=== PATIENT | male | born 1975 | race Caucasian/White ===

== ENCOUNTER 2016-12-19 23:22 | Emergency (ER) | payer MEDICAID ==
[2017-02-22 12:02] VITALS: BMI 16.3
== END 2016-12-20 00:43 | disposition home or self-care (01) ==
LOC: D.ER 23:22
DX: J01.90 Acute sinusitis, unspecified (principal); J44.1 Chronic obstructive pulmonary disease with (acute) exacerbation; F17.200 Nicotine dependence, unspecified, uncomplicated

== ENCOUNTER → 2017-01-24 15:11 | Outpatient (CLI) | payer MEDICAID ==
[~2017-01-24 15:11] MED LIST: COMBIVENT RESPIM4 GM INH; PROVENTIL HFA6.7 GM INH
[2017-02-22 12:02] VITALS: BMI 16.3
== END | disposition home or self-care (01) ==
LOC: D.CT 01-17 14:30
DX: R91.8 Other nonspecific abnormal finding of lung field (principal)

== ENCOUNTER 2017-02-22 11:35 | Outpatient (CLI) | payer MEDICAID ==
[~2017-02-22] VITALS: Ht 193 cm; Wt 60.9 kg
--- NOTE | ~2017-02-22 | HEMODYNAMI ---
PATIENT:FRANCE BOX MEDICAL RECORD: [id number] : 79 LOCATION:[facility] ADMISSION DATE: 02/22/17 Generatedon:02/22/201713:24 Patient name: FRANCE BOX Patient #: [id number] SSN: : [id number] Date of study: 02/22/2017 Page: Of Hemodynamic Procedure Report Patient Data Patient Demographics Procedure consent was obtained First Name: FRANCE Gender: Male Last Name: ISAURO : 1975 Middle Initial: DELL Age: 41 year(s) Patient #: [id number] Race: Additional ID: [id number] Contact details Address: [address] [place] [address] State: [place] City: [place] Zip code: [address] Past Medical History Allergies Allergen Reaction Date Comments Reported Other allergy 02/22/2017 Demadex, PCN, ASA, Benadryl, Robitussin DM Admission Admission Data Admission Date: 02/22/2017 Admission Time: 11:35 Admit Source: Other Height (in.): 76 BSA: 1.87 (m2) Height (cm.): 193.04 BMI: 16.31 (kg/m2) Weight (lbs.): 134 Weight (kg.): 60.78 Lab Results Lab Result Date: 02/22/2017 Lab Result Time: 0:00 Biochemistry Name Units Result Min Max Creatinine mg/dl 0.8 --(-*--)-- 0.6 1.3 CBC Name Units Result Min Max Hemoglobin g/dl 15.3 --(-*--)-- 13.5 17.5 Procedure Procedure Types Cath Procedure Diagnostic Procedure [facility] w/Coronaries Miscellaneous Procedures Moderate Sedation up to 30 minutes Procedure Description Procedure Date Procedure Date: 02/22/2017 Procedure Start Time: 13:12 Procedure End Time: 13:24 Procedure Staff Name Function Moisés Moss MD Performing Physician Omar Kaur RT Scrub Adolfo Thomas RN Nurse Rachell Agosto RT Monitor Procedure Data Cath Procedure Fluoroscopy Diagnostic fluoroscopy Total fluoroscopy Time: 1.1 time: 1.1 min min Diagnostic fluoroscopy Total fluoroscopy dose: 149 dose: 149 mGy mGy Contrast Material Contrast Material Type Amount (ml) Isovue 300 67 Entry Location Entry Primary Successful Side Size Upsize Upsize Entry Closure Succes sful Closure Location (Fr) 1 (Fr) 2 (Fr) Remarks Device Remarks Femoral Right 5 Fr Exoseal artery Estimated blood loss: 5 ml Diagnostic catheters Device Type Used For End Catheter Placement Cordis 5Fr JL 4.0 Left Coronary Catheter (MP) Angiography Cordis 5Fr 3DRC Catheter Right Coronary (MP) Angiography Cordis 5Fr Pigtail LV Angiography Catheter (MP) Procedure Complications No complications Procedure Medications Medication Administration Route Dosage Oxygen NC 2 l/min Heparin Flush Bag added to field 2 bags (1000units/500ml NS) 0.9% NaCl I.V. 100 ml/hr Fentanyl I.V. 50 mcg Versed I.V. 1 mg Fentanyl I.V. 50 mcg Versed I.V. 1 mg Fentanyl I.V. 50 mcg Versed I.V. 1 mg Fentanyl I.V. 50 mcg Versed I.V. 1 mg Hemodynamics Rest BSA: 1.87 (m2) HGB: 15.3 (g/dl) O2 Consumption: Estimated: 229.37 (ml/min) O2 Co nsumption indexed: Estimated:122.66 (ml/min/m) Heart Rate: 71 (bpm) Pressure Samples Time Site Value (mmHg) Purpose Heart Use Rate(bpm) 13:18 LV 91/0,19 EDP 69 Gradients Valve Time Site Site Mean SEP/DFP Peak To Heart Use 1 2 (mmHg) (sec/min) Peak Rate (mmHg) (bpm) Aortic 13:19 LV AO 72 Snapshots Pre Cath Intra NCS Post Cath Vital Signs Time Heart Resp SPO2 etCO2 VB1ifla NIBP Rhythm Pain Sedation Rate (ipm) (%) (mmHg) (mmHg) (mmHg) Status Level (bpm) 12:55:06 69 17 98 0 0 112/67(83) NSR 0 (11) 10(A) , No pain 12:59:14 67 18 96 0 0 99/65(85) NSR 0 (11) 10(A) , No pain 13:03:18 68 17 94 0 0 104/66(86) NSR 0 (11) 10(A) , No pain 13:07:26 65 18 95 0 0 94/59(75) NSR 0 (11) 10(A) , No pain 13:11:30 62 18 94 0 0 103/59(78) NSR 0 (11) 9(A) , No pain 13:15:35 71 19 96 0 0 99/59(77) NSR 0 (11) 9(A) , No pain 13:19:41 73 18 96 0 0 104/55(83) NSR 0 (11) 9(A) , No pain 13:22:47 72 18 95 0 0 94/62(82) NSR 0 (11) 9(A) , No pain Medications Time Medication Route Dose Verified Delivered Reason Notes Effec tiveness by by 12:54:55 Oxygen NC 2 Adolfo Adolfo Per l/min William Thomas RN physician RN 12:55:04 Heparin Flush added 2 Adolfo Adolfo used for Bag to bags William Thomas mutuel cashier (1000units/500ml field RN NS) 12:55:34 0.9% NaCl I.V. 100 Adolfo Adolfo Per ml/hr William Thomas RN physician RN 13:01:12 Fentanyl I.V. 50 Adolfo Adolfo for [facility] William Thomas RN sedation RN 13:01:19 Versed I.V. 1 mg Adolfo Adolfo for William Thomas RN sedation RN 13:04:03 Fentanyl I.V. 50 Adolfo Adolfo for [facility] William Thomas RN sedation RN 13:04:07 Versed I.V. 1 mg Adolfo Adolfo for William Thomas RN sedation RN 13:06:11 Fentanyl I.V. 50 Adolfo Adolfo for [facility] William Thomas RN sedation RN 13:12:09 Versed I.V. 1 mg Adolfo Adolfo for William Thomas RN sedation RN 13:14:42 Fentanyl I.V. 50 Adolfo Adolfo for [facility] William Thomas RN sedation RN 13:14:48 Versed I.V. 1 mg Adolfo Adolfo for William Thomas RN sedation research soil scientist Log Time Note 12:30:09 Time tracking: Regular hours 12:42:13 Plan of Care:Hemodynamics will remain stable., Cardiac rhythm will remain stable., Comfort level will be maintained., Respiratory function will remain adequate., Patient/ family verbilizes understanding of procedure., Procedure tolerated without complication., Recovers from procedure without complications.. 12:44:47 Patient Height : 76 cm 12:44:50 Patient Weight : 134 kg 12:45:01 Patient received from Pre/Post Procedure Room to CCL 1 Alert and oriented. Tansferred to table in Supine position. 12:45:02 Warm blankets applied, and marly hugger turned on for patient comfort. 12:45:03 Correct patient and procedure confirmed by team. 12:45:04 Signed procedure consent form obtained from patient. 12:45:05 ECG and BP/O2 sat monitors applied to patient. 12:45:06 Full Disclosure recording started 12:54:00 Vital chart was started 12:54:04 Rhythm: sinus rhythm 12:54:39 H&P Date Dictated: 02/01/2017 Within 30 days and on chart., H&P Addendum completed by physician on day of procedure. (MUST COMPLETE FOR ALL OUTPATIENTS). 12:54:40 Pre-procedure instructions explained to patient. 12:54:40 Pre-op teaching completed and patient verbalized understanding. 12:54:42 Family in waiting room. 12:54:44 Patient NPO since Midnight. 12:54:55 Oxygen 2 l/min NC was administered by Adolfo Thomas RN; Per physician; 12:55:04 Heparin Flush Bag (1000units/500ml NS) 2 bags added to field was administered by Adolfo Thomas RN; used for procedure; 12:55:15 Patient allergic to Other allergyDemadex, PCN, ASA, Benadryl, Robitussin DM 12:55:17 Is the patient allergic to Iodine/contrast media? No. 12:55:19 Is patient on blood thinner?No 12:55:22 Patient diabetic? No. 12:55:25 Previous problem with sedation/anesthesia? No ? 12:55:25 Snore? Yes 12:55:26 Sleep apnea? No 12:55:27 Deviated septum? No 12:55:28 Opens mouth fully? Yes 12:55:30 Sticks out tongue? Yes 12:55:34 0.9% NaCl 100 ml/hr I.V. was administered by Adolfo Thomas RN; Per physician; 12:55:38 Airway obstruction? Yes COPD 12:55:40 Dentures? No ? 12:55:43 Pre procedure: right dorsailis pedis pulse 2+ Normal; easily identifiable; not easily obliterated 12:55:45 Patient pain scale 0/10 ?. 12:55:57 IV patent on arrival in left hand with 0.9% NaCl at [facility]. 12:56:21 Lab Result : Creatinine 0.8 mg/dl 12:56:21 Lab Result : Hemoglobin 15.3 g/dl 12:56:27 Lab results completed and on chart. 12:56:30 Right groin area was prepped with chlora-prep and draped in sterile fashion 12:56:36 Modified Bridger's test Ulnar > 7 seconds. 12:56:38 Alarms reviewed by R. N. 12:56:38 Sharps counted by scrub and verified by R.N. 12:56:42 Use device set Femoral Dx 12:56:43 Acist Syringe opened to sterile field. 12:56:47 Bag Decanter opened to sterile field. 12:56:48 Medline Cath Pack opened to sterile field. 12:56:49 Terumo 5Fr [place] Sheath opened to sterile field. 12:56:50 St Simba 260cm J .035 wire opened to sterile field. 12:57:59 Acist Hand Control opened to sterile field. 12:57:59 Acist Manifold opened to sterile field. 12:58:00 Diagnostic Infinity 5Fr Multipack catheter opened to sterile field. 12:58:01 Tegaderm 4 x 4 opened to sterile field. 13:00:47 Final Timeout: patient, procedure, and site verified with staff and physician. All members of the team are in agreement. 13:00:49 Right groin site verified by team. 13:00:51 Physical assessment completed. ASA score P 2 - A patient with mild systemic disease as per Moisés Moss MD. 13:00:54 Sedation plan: IV Moderate Sedation Versed, Fentanyl 13:01:12 Fentanyl 50 mcg I.V. was administered by Adolfo Thomas RN; for sedation; 13:01:19 Versed 1 mg I.V. was administered by Adolfo Thomas RN; for sedation; 13:01:44 Admit Source: Other 13:03:59 Baseline sample Acquired. 13:04:03 Fentanyl 50 mcg I.V. was administered by Adolfo Thomas RN; for sedation; 13:04:07 Versed 1 mg I.V. was administered by Adolfo Thomas RN; for sedation; 13:06:08 Zero performed for pressure channel P1 13:06:11 Fentanyl 50 mcg I.V. was administered by Adolfo Thomas RN; for sedation; 13:06:11 Zero performed for pressure channel P1 13:12:09 Versed 1 mg I.V. was administered by Adolfo Thomas RN; for sedation; 13:12:13 Procedure started. 13:12:19 Local anesthetic to right femoral artery with Lidocaine 2% by Moisés Moss MD.INITIAL ACCESS ONLY 13:14:07 A 5 Fr sheath was inserted into the Right Femoral artery 13:14:37 A Cordis 5Fr JL 4.0 Catheter (MP) was advanced over the wire and used for Left Coronary Angiography. 13:14:42 Fentanyl 50 mcg I.V. was administered by Adolfo Thomas RN; for sedation; 13:14:48 Versed 1 mg I.V. was administered by Adolfo Thomas RN; for sedation; 13:16:03 Catheter removed. 13:17:06 A Cordis 5Fr 3DRC Catheter (MP) was advanced over the wire and used for Right Coronary Angiography. 13:17:15 Catheter removed. 13:17:24 A Cordis 5Fr Pigtail Catheter (MP) was advanced over the wire and used for LV Angiography. 13:17:55 Cordis 5Fr Exoseal opened to sterile field. 13:18:29 LV gram done using MEDEROS 13:18:30 LV hemodynamics recorded. 13:18:32 Injector settings: Ml/sec: 10, Volume: 20, 13:18:39 EF : 55 % 13:19:01 Catheter removed. 13:19:13 Sheath removed intact; hemostasis achieved with Exoseal to the Right Femoral artery. 13:19:20 Procedure ended.(Physican Out) 13:19:25 Fluoroscopy time 01.10 minutes. 13:19:28 Fluoroscopy dose: 149 mGy 13:19:28 Flurop Dose total: 149 13:19:31 Contrast amount:Isovue 300 67ml. 13:19:33 Sharps counted by scrub and verified by R.N. 13:19:34 Insertion/operative site no bleeding no hematoma. 13:19:40 Post-op/insertion site Right Femoral artery dressed using a 4 x 4 and Tegaderm. 13:19:44 Post right femoral artery:stable, clean and dry 13:19:46 Post Procedure Pulses reassessed and unchanged 13:19:50 Post-procedure physical assessment completed. ASA score P 2 - A patient with mild systemic disease as per Moisés Moss MD. 13:19:53 Post procedure rhythm: unchanged. 13:19:56 Estimated blood loss: 5 ml 13:19:57 Post procedure instruction explained to patient.Patient verbalizes understanding. 13:19:58 Patient needs reinforcement of post procedure teaching. 13:20:24 Procedure type changed to Cath procedure, Diagnostic procedure, LHC, LHC w/Coronaries, Miscellaneous Procedures, Moderate Sedation up to 30 minutes 13:20:29 Procedure Complication : No complications 13:20:32 See physician's report for complete and final results. 13:20:51 Procedure and supply charges have been captured, reviewed, submitted and are correct. 13:23:54 Vital chart was stopped 13:24:02 Report given to Pre/Post Procedure Room. 13:24:08 Patient transfered to Pre/Post Procedure Room with Stretcher. 13:24:24 Procedure ended. 13:24:24 Full Disclosure recording stopped 13:24:27 End room use (Document Last) Device Usage Item Name Manufacture Quantity Catalog Hospital Part Current Minimal Lo t# / Number Charge Number Stock Stock Serial# Code Acist Acist 1 61424 193985 045391 552160 20 Syringe [employer] Bag Microtek 1 2002S 465472 03259 391585 5 Decanter [employer] Medline Cardinal 1 [id number] 600798 63493 549763 5 Cath Pack Health Terumo 5Fr Terumo 1 [id number] 162893 282055 081942 [address] [place] [address] St Simba 1 554169 290329 354750 433288 30 260cm J .035 wire Acist Hand Acist 1 86075 159334 968516 901014 5 Control [employer] Inc Acist Acist 1 16155 268128 180999 421942 5 Manifold [employer] Inc Diagnostic Cardinal 1 [id number] 277611 50596 244241 30 Infinity Health 5Fr Multipack catheter Tegaderm 4 3M 1 1626W 151791 594024 047670 5 x 4 Cordis 5Fr Cardinal 1 346928 5 JL 4.0 Health Catheter (MP) Cordis 5Fr Cardinal 1 084586 5 3DRC Health Catheter (MP) Cordis 5Fr Cardinal 1 594027 5 Pigtail Health Catheter (MP) Cordis 5Fr Cardinal 1 EX500 446645 864581 796546 10 [facility] Health Signature Audit [place] Stage Time Signature Unsigned Intra-Procedure 02/22/2017 Rachell 1:24:44 PM Counts RT(R) Signatures Monitor : Rachell Signature : Counts RT Date : Time : [address] [address]
[2017-02-22] MEDS ORDERED: COMBIVENT RESPIM4 GM INH (11:53)
[2017-02-22] MEDS ORDERED: PROVENTIL HFA6.7 GM INH (11:54)
[2017-02-22 12:02] VITALS: BP 102/71; Ht 193 cm; Wt 60.9 kg
[2017-02-22 12:16] LABS: BASOPHILS 0.3 % (0.0-2.0); EOSINOPHILS 1.1 % (0-7); HEMATOCRIT 44.5 % (42.0-54.0); HEMOGLOBIN 15.3 g/dL (13.5-17.5); IMMATURE GRANULOCYTES 0.3 % (0-5); LYMPHOCYTES 25.9 % (15-50); MCH 30.8 pg (26.0-34.0); MCHC 34.4 g/dL (31.0-37.0); MCV 89.7 fL (80.0-100.0); MEAN PLATELET VOLUME 9.6 fL (7.4-10.4); MONOCYTES 10.8 % (2-11); NEUTROPHILS 61.6 % (40-80); RBC 4.96 10x6/uL (4.20-6.10); RDW 13.2 % (11.5-14.5); WBC 7.6 10x3/uL (4.8-10.8)
[2017-02-22 12:19] LABS: PLATELET COUNT 232 10x3/uL (130-400)
[2017-02-22 12:40] LABS: CALC OSMOLALITY 281 mosm/kg (275-300); CALCIUM 8.7 mg/dL (8.5-10.1); CARBON DIOXIDE 29.1 mmol/L (21.0-32.0); CHLORIDE - SERUM 107 mmol/L (98-107); CREATININE - SERUM 0.8 mg/dL (0.6-1.3); GLUCOSE 97 mg/dL (74-106); POTASSIUM - SERUM 4.2 mmol/L (3.5-5.1); SODIUM 142 mmol/L (136-145); UREA NITROGEN 11 mg/dL (7-18); eGFR NON AFRICAN AMERICAN > 90 mL/min (90-120)
--- NOTE | 2017-02-22 13:45 | NUR ---
CHEST PAIN DENIED WITH VSS. 6 FR EXOSEAL R/GROIN CDI NO BLEEDING NO HEMATOMA NOTED. FAMILY AT SIDE
--- NOTE | 2017-02-22 14:30 | NUR ---
PATIENT COMPLAINS OF PAIN TO R/GROIN. DR. BERMAN NOTIFIED WITH ORDERS FOR TYLENOL MEDICATION GIVEN DIRECTED
--- NOTE | 2017-02-22 15:33 | NUR ---
1515 PT STATES PAIN TO RIGHT GROIN DECREASED TO A 4/10 AFTER TYLENOL. DRESSING TO RIGHT GROIN IS CDI, NO BLEEDING OR HEMATOMA NOTED. PEDAL PULSES PALPABLE. VSS. PT DENIES ANY C/O CHEST PAIN. IV DC'D WITH CATH INTACT AND PT IS DRESSING FOR DC TO HOME. PT HAS BEEN SERVED AND DAVID SANDWICH AND PO FLUIDS WITH NO C/O NAUSEA. 1530 DC INSTRUCITONS HAVE BEEN REVIEWED WITH PT AND FAMILY WHO VERBALIZE UNDERSTANDING. PT HAS VOIDED QS. PT ESCORTED TO PRIVATE AUTO VIA WC BY STAFF WITH UNCLE DRIVING HIM HOME. PT DENIES ANY C/O UPON DC.
--- NOTE | 2017-02-24 08:22 | OP ---
PATIENT NAME: FRANCE BOX MEDICAL RECORD: [id number] :[birth year] LOCATION:D.CAT ADMISSION DATE: SURGEON: NATI BERMAN MD DATE OF OPERATION: 02/22/2017 PROCEDURE: Left heart catheterization, selective coronary angiography, right femoral approach. CATHETERS: A 5-[place] sheath, 5/4 left and right Finn, 5/4 pig. The procedure was well tolerated. The patient returned to the marino, sheath removed. ExoSeal device placed. FINDINGS: Left ventriculography in 30-degree MEDEROS view. Normal wall motion, normal systolic function. CORONARY ANATOMY: LEFT MAIN: Left main is free of disease. LAD: Free of disease in the diagonal system. CIRCUMFLEX: Free of disease in the marginal system. RIGHT CORONARY ARTERY: Dominant artery, gives rise to PDA, free of disease. IMPRESSION: Normal systolic function. Normal coronary anatomy. TRANSINT:[id number] Voice Confirmation ID: [id number] DOCUMENT ID: [id number] NATI BERMAN MD at 0822 CC: [id number] DICTATION DATE: 02/22/17 1326 RECLAMATION WORKER: 02/22/172031 DEP CLI 02/22/17 [facility] [address] [place] [address]
== END 2017-02-22 15:30 | disposition home or self-care (01) ==
LOC: D.CATH 11:35
PROVIDERS: Internal Medicine Interventional Cardiology
DX: I20.9 Angina pectoris, unspecified (principal); J44.9 Chronic obstructive pulmonary disease, unspecified; R06.02 Shortness of breath; F17.200 Nicotine dependence, unspecified, uncomplicated; R06.00 Dyspnea, unspecified

== ENCOUNTER 2017-03-24 04:08 | Emergency (ER) | payer MEDICAID ==
[2017-02-22 12:02] VITALS: BMI 16.3
== END 2017-03-24 05:02 | disposition home or self-care (01) ==
LOC: D.ER 04:08
DX: K02.9 Dental caries, unspecified (principal); K08.89 Other specified disorders of teeth and supporting structures; J44.9 Chronic obstructive pulmonary disease, unspecified; F17.200 Nicotine dependence, unspecified, uncomplicated

== ENCOUNTER 2017-07-16 19:20 | Emergency (ER) | payer MEDICAID ==
[2017-02-22 12:02] VITALS: BMI 16.3
== END 2017-07-16 21:46 | disposition home or self-care (01) ==
LOC: D.ER 19:20
DX: L97.219 Non-pressure chronic ulcer of right calf with unspecified severity (principal); F17.200 Nicotine dependence, unspecified, uncomplicated; J45.909 Unspecified asthma, uncomplicated; J44.9 Chronic obstructive pulmonary disease, unspecified

== ENCOUNTER 2020-01-17 10:48 | Emergency (ER) | payer OTHER ==
[~2020-01-17] VITALS: Ht 193 cm; Wt 66.6 kg
[2020-01-17 10:55] VITALS: Ht 193 cm; Wt 66.6 kg
[2020-01-17] MEDS ORDERED: CYCLOBENZAPRINE10 MG PO (12:46)
[2020-01-17] MEDS ORDERED: PREDNISONE10 MG PO (12:46)
[2020-01-17] MEDS ORDERED: EC-NAPROSYN500 MG PO (12:46)
[2020-01-17 13:00] VITALS: BP 114/52
== END 2020-01-17 13:01 | disposition home or self-care (01) ==
LOC: D.ER 10:48
DX: S20.212A Contusion of left front wall of thorax, initial encounter (principal); J44.9 Chronic obstructive pulmonary disease, unspecified; Z72.0 Tobacco use; W22.8XXA Striking against or struck by other objects, initial encounter; Y93.89 Activity, other specified; Y92.9 Unspecified place or not applicable